=== PATIENT | male | born 1965 | race Caucasian/White ===

== ENCOUNTER 2017-01-13 14:58 | Emergency (ER) | payer MEDICAID, OTHER ==
[2017-01-13 15:08] VITALS: BP 135/95; PULSE 95; RESP 18; TEMP 98.4; O2SAT 96
--- NOTE | 2017-01-13 15:29 | EDPHY ---
H & P Smoking Status: Current every day smoker Time Seen by Provider: 01/13/17 15:13 HPI/ROS: CHIEF COMPLAINT: Feeling paranoid, off medication HISTORY OF PRESENT ILLNESS: 51-year-old male presents to the emergency department voluntarily feeling paranoid. The patient has a history of bipolar and has been off of his Lamictal, Zyprexa, and Remeron. He was in [facility] and has been off of his medications for a few weeks. He went to [facility] today and they advised him to come to the emergency department become stabilized on his medications. He does smoke marijuana. He denies chest pain or difficulty breathing. Denies abdominal pain. Denies fevers or chills. Denies URI symptoms. He denies suicidal ideation. Denies homicidal ideation. Denies auditory or visual hallucinations. Patient states that he is feeling paranoid "like people are talking about me." REVIEW OF SYSTEMS: Constitutional: No fever, no chills. Eyes: No double or blurry vision. ENT: No sore throat. Respiratory: No cough, no shortness of breath. Cardiac: No chest pain. Gastrointestinal: No abdominal pain, vomiting or diarrhea. Genitourinary: No dysuria. Musculoskeletal: No neck or back pain. Skin: No rashes. Neurological: No headache. (Mavis Avila) Past Medical/Surgical History: Bipolar (Mavis Avila) Social History: Homeless (Mavis Avila) Physical Exam: General Appearance: Alert, no distress. Vital signs are stable. He does not smell of alcohol. Eyes: Pupils equal and round. Extraocular motions are all intact. ENT: Mouth: Mucous membranes moist. Respiratory: No wheezing, rhonchi, or rales, lungs are clear to auscultation. Cardiovascular: Regular rate and rhythm. Gastrointestinal: Abdomen is soft and nontender, no masses, no rebound or guarding, bowel sounds normal. Neurological: Alert and oriented x 3, cranial nerves II through XII grossly intact Skin: Warm and dry, no rashes. Musculoskeletal: Nontender to palpate along the cervical, thoracic or lumbar spine. Neck is supple. Extremities: Full range of motion and no peripheral edema. Psychiatric: Patient is oriented X 3, there is no agitation. (Mavis Avila) Constitutional: Initial Vital Signs Temperature (C) 36.9 C 02/22/17 15:04 Heart Rate 95 01/13/17 15:04 Respiratory Rate 18 01/13/17 15:04 Blood Pressure 135/95 H 01/13/17 15:04 O2 Sat (%) 96 01/13/17 15:04 Allergies/Adverse Reactions: aripiprazole [From Abilify] Allergy (Mild, Verified 07/10/13 10:17) Rash Home Medications: Medication Instructions Recorded No Medications [No Meds] 1 ea MISC 07/10/13 oxyCODONE/APAP 5/325 [Percocet 1 tab PO Q6 #15 tab 07/10/13 5/325] LaMICtal 01/13/17 Zyprexa 01/13/17 Medical Decision Making ED Course/Re-evaluation: 51-year-old male presents voluntarily feeling paranoid. He would like to be stable as on his medications. He is not feeling depressed or suicidal. Laboratory studies are pending. The patient has been medically cleared and is awaiting mental health evaluation. Patient did have positive urine tox screen for amphetamines. He denies using any kind methamphetamines. He does not take medication for ADD or attention deficit hyperactivity disorder treatment. (Mavis Avila) Care assumed by me from Mavis Avila pending mental health evaluation. Patient noted to have eloped from the emergency department via is he was not on a ulnar that tender. He was not a danger to self or others. (Maurilio Zhang) Differential Diagnosis: Depression including functional and major depression, situational depression, medication side effect, drugs and alcohol abuse. (Mavis Avila) Care Turn Over: Care will be turned over to Dr. Zhang for disposition and plan. (Mavis Avila) - Data Points Laboratory Results: Laboratory Results 01/13/17 15:39 01/13/17 15:39 01/13/17 01/13/17 01/13/17 15:40 15:39 15:39 WBC 8.71 10^3/uL 10^3/uL (3.80-9.50) RBC 5.55 10^6/uL 10^6/uL (4.40-6.38) Hgb 17.7 g/dL H g/dL (13.7-17.5) Hct 50.1 % % (40.0-51.0) MCV 90.3 fL fL (81.5-99.8) MCH 31.9 pg pg (27.9-34.1) MCHC 35.3 g/dL g/dL (32.4-36.7) RDW 12.7 % % (11.5-15.2) Plt Count 312 10^3/uL 10^3/uL (150-400) MPV 8.8 fL fL (8.7-11.7) Neut % (Auto) 63.7 % % (39.3-74.2) Lymph % (Auto) 26.5 % % (15.0-45.0) [place] % (Auto) 6.0 % % (4.5-13.0) Eos % (Auto) 2.8 % % (0.6-7.6) Baso % (Auto) 0.8 % % (0.3-1.7) Nucleat RBC Rel Count 0.2 % % (0.0-0.2) Absolute Neuts (auto) 5.55 10^3/uL 10^3/uL (1.70-6.50) Absolute Lymphs (auto) 2.31 10^3/uL 10^3/uL (1.00-3.00) Absolute Monos (auto) 0.52 10^3/uL 10^3/uL (0.30-0.80) Absolute Eos (auto) 0.24 10^3/uL 10^3/uL (0.03-0.40) Absolute Basos (auto) 0.07 10^3/uL 10^3/uL (0.02-0.10) Absolute Nucleated RBC 0.02 10^3/uL H 10^3/uL (0-0.01) Immature Gran % 0.2 % % (0.0-1.1) Immature Gran # 0.02 10^3/uL 10^3/uL (0.00-0.10) Sodium 142 mEq/L mEq/L (134-144) Potassium 4.8 mEq/L mEq/L (3.5-5.2) Chloride 105 mEq/L mEq/L (97-110) Carbon Dioxide 26 mEq/l mEq/l (22-31) Anion Gap 11 mEq/L mEq/L (8-16) BUN 15 mg/dL mg/dL (7-23) Creatinine 0.8 mg/dL mg/dL (0.7-1.3) Estimated GFR > 60 Glucose 84 mg/dL mg/dL (70-100) Calcium 9.9 mg/dL mg/dL (8.5-10.4) TSH 2.140 uIU/mL uIU/mL (0.465-4.680) Urine Opiates Screen NEGATIVE (NEGATIVE) Urine Barbiturates NEGATIVE (NEGATIVE) Ur Phencyclidine Scrn NEGATIVE (NEGATIVE) Ur Amphetamine Screen NON-NEGATIVE H (NEGATIVE) U Benzodiazepines Scrn NEGATIVE (NEGATIVE) Urine Cocaine Screen NEGATIVE (NEGATIVE) U Marijuana (THC) Screen NON-NEGATIVE H (NEGATIVE) Ethyl Alcohol < 10 mg/dL mg/dL (0-10) Departure - Departure Disposition: Against Medical Advice Clinical Impression: Bipolar 1 disorder Condition: Fair Referrals: NONE *PRIMARY CARE P,. [Unknown] - As per Instructions
[2017-01-13 15:43] LABS: % IMMATURE GRANULYOCYTES 0.2 % (0.0-1.1); ABSOLUTE IMMATURE GRANULOCYTES 0.02 10^3/uL (0.00-0.10); ABSOLUTE NRBC COUNT 0.02 10^3/uL (0-0.01); ADD DIFF? NO; ADD MORPH? NO; ADD SCAN? NO; ATYPICAL LYMPHOCYTE FLAG 20 (0-99); FRAGMENT RBC FLAG 0 (0-99); HEMATOCRIT 50.1 % (40.0-51.0); HEMOGLOBIN 17.7 g/dL (13.7-17.5); LEFT SHIFT FLG 0 (0-99); LIPEMIA HEMOLYSIS FLAG 90 (0-99); MEAN CELL HEMOGLOBIN 31.9 pg (27.9-34.1); MEAN CELL HEMOGLOBIN CONCENTR. 35.3 g/dL (32.4-36.7); MEAN CELL VOLUME 90.3 fL (81.5-99.8); MEAN PLATELET VOLUME 8.8 fL (8.7-11.7); NRBC-AUTO% 0.2 % (0.0-0.2); PLATELET CLUMPS FLAG 0 (0-99); PLATELET COUNT 312 10^3/uL (150-400); RED BLOOD CELL COUNT 5.55 10^6/uL (4.40-6.38); RED CELL DISTRIBUTION WIDTH 12.7 % (11.5-15.2)
[2017-01-13 16:00] LABS: ANION GAP 11 mEq/L (8-16); CALCIUM 9.9 mg/dL (8.5-10.4); CARBON DIOXIDE 26 mEq/l (22-31); CHLORIDE 105 mEq/L (97-110); CREATININE 0.8 mg/dL (0.7-1.3); ETHANOL SERUM < 10 mg/dL (0-10); GLOMERULAR FILTRATION RATE > 60; GLUCOSE 84 mg/dL (70-100); POTASSIUM 4.8 mEq/L (3.5-5.2); SODIUM 142 mEq/L (134-144)
== END 2017-01-13 19:00 | disposition left against medical advice (07) ==
DX: F31.9 Bipolar disorder, unspecified (principal)
CPT/HCPCS: 80305; G0480

== ENCOUNTER 2017-04-07 10:20 | Emergency (ER) | payer MEDICAID ==
[2017-04-07 10:38] VITALS: RESP 16; O2SAT 94
[2017-04-07] MEDS ORDERED: TDAP ADULT 0.5 ML INJ (BOOSTRIX) IM ONE (10:55)
--- NOTE | 2017-04-07 11:00 | EDPHY ---
H & P Time Seen by Provider: 04/07/17 10:45 HPI/ROS: CHIEF COMPLAINT: Hand abrasions, infection right great toe HISTORY OF PRESENT ILLNESS: 51-year-old male presents to the emergency department with abrasions to both hands. The patient states yesterday he locked his keys in his car and he had to go through the trunk. He sustained multiple abrasions to his upper extremities including his hands. States that the now feels very swollen is concerned about possible infection. He also has an area of redness and pain to the right great toe. He denies lymphangitis. He thinks that this was a blister from walking. He denies any other known trauma or injury. No fevers or chills. No other reported trauma. ROS: Denies paresthesias in upper or lower extremities. Denies retained foreign body. Past Medical/Surgical History: Asthma, hepatitis-C, PTSD, bipolar, anxiety Social History: Single Smoking Status: Current every day smoker Physical Exam: On examination the patient has multiple excoriations noted to dorsal aspect of both hands. There is no obvious redness or warmth or signs of infection. His fingers do appear a bit swollen although no signs of cellulitis. No lymphangitis. No palpable bony tenderness. Full range of motion of his fingers. Has area of redness to the base of the right great toe that is warm and tender to palpate. He has full range of motion of his toes. There is no lymphangitis. No palpable bony tenderness. The other toes do not appear injured. Constitutional: Initial Vital Signs Temperature (C) 36.7 C 04/07/17 10:25 Heart Rate 86 04/07/17 10:25 Respiratory Rate 16 04/07/17 10:25 Blood Pressure 133/79 H 04/07/17 10:25 O2 Sat (%) 94 04/07/17 10:25 O2 Delivery Mode Room Air Allergies/Adverse Reactions: aripiprazole [From Abilify] Allergy (Mild, Verified 04/07/17 10:34) Rash Home Medications: Medication Instructions Recorded Cephalexin [Keflex] 500 mg PO QID #28 cap 04/07/17 Invocana 04/07/17 MDM/Departure - MDM ED Course/Re-evaluation: 51-year-old male presents to the emergency department with multiple abrasions to his hands. Patient was reassured as I do not think he has any signs of cellulitis to this hands. They appear very superficial and given the history I doubt he has associated cellulitis. He does have a painful abrasion to the right great toe which could have been a ruptured blister which is now become secondarily infected. He will be started on oral Keflex. He was given wound care precautions. His tetanus shot was updated. - Depart Disposition: Home, Routine, Self-Care Clinical Impression: Cellulitis of great toe, right, Multiple abrasions Condition: Good Instructions: Cellulitis (ED), Abrasion (ED), Acute Wounds (ED) Additional Instructions: Keflex 500 mg 4 times daily for 1 week. Your given a tetanus shot today in the emergency department. Return if you developed fever, red streaking up your arm, or if you feel worse in any way. Prescriptions: Cephalexin [Keflex] 500 mg PO QID #28 cap Referrals: [facility],. [Clinic] - As per Instructions
[2017-04-07 11:11] VITALS: BP 128/72; PULSE 84; TEMP 97.5
== END 2017-04-07 11:11 | disposition home or self-care (01) ==
DX: S60.511A Abrasion of right hand, initial encounter (principal); S60.512A Abrasion of left hand, initial encounter; L03.031 Cellulitis of right toe; J45.909 Unspecified asthma, uncomplicated; F17.200 Nicotine dependence, unspecified, uncomplicated; W22.8XXA Striking against or struck by other objects, initial encounter; Y93.89 Activity, other specified